=== PATIENT | male | born 1975 | race Hispanic/Latino ===

== ENCOUNTER → 2019-10-18 | Outpatient (CLI) | payer OTHER | END | disposition home or self-care (01) | LOC: RAH 11:12 → EEVIPCON 11:12 | PROVIDERS: ATTEND Internal Medicine | DX: N50.82 Scrotal pain (principal) | CPT/HCPCS: 76870 ==

== ENCOUNTER → 2019-11-02 | Outpatient (CLI) | payer OTHER | END | disposition home or self-care (01) | LOC: EEVIPCON 08:21 → RAH 08:21 | PROVIDERS: ATTEND Internal Medicine | DX: S83.282A Other tear of lateral meniscus, current injury, left knee, initial encounter (principal); M25.562 Pain in left knee; M71.22 Synovial cyst of popliteal space [Baker], left knee; M25.462 Effusion, left knee; X58.XXXA Exposure to other specified factors, initial encounter; Y92.89 Other specified places as the place of occurrence of the external cause; Y93.89 Activity, other specified; Y99.8 Other external cause status | CPT/HCPCS: 73721 ==